=== PATIENT | male | born 1935 | race Caucasian/White ===

== ENCOUNTER → 2018-02-16 10:22 | Outpatient (CLI) | payer MEDICARE, SELFPAY ==
--- NOTE | 2018-02-16 10:30 | XR_ITS ---
XR chest 2V Ordering Physician: Luis Angel Oh MD Patient Age: 82 years: Male HISTORY: ITS.REASON: YEARLY PHYSICAL EXAM TECHNIQUE: PA and lateral chest. Some Coughing.. No chest pain Physical exam COMPARISON :03/27 and 03/15/2016. FINDINGS no lung nodule or lesion evident . 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 Slight coarsening markings toward right infrahilar region and right lung base is overall similar to previous studies. . No significant change Left lung bases clear unremarkable upper lung anand clear. Heart normal size. The lolita and mediastinal structures satisfactory. No pleural effusion. Anterior marginal osteophytes and hyperostosis throughout the T-spine again noted similar to previous studies. No significant Changes T-spine. IMPRESSION: . stable chest nothing definitely acute. Mild chronic changes bilaterally most evident towards right lung base
== END ==
PROVIDERS: PCP Family Medicine; Visit Provider Family Medicine
DX: Z00.00 Encounter for general adult medical examination without abnormal findings (principal)
CPT/HCPCS: 71046; 93005

== ENCOUNTER → 2018-03-15 09:08 | Outpatient (CLI) | payer MEDICARE, SELFPAY ==
[2018-03-15 10:29] LABS: Anion Gap 9.7 mEq/L (5-15); Blood Urea Nitrogen 34 mg/dL (7-18); Calcium 8.9 mg/dL (8.5-10.1); Carbon Dioxide 27 mmol/L (21.0-32.0); Chloride 107 mmol/L (98-107); Creatinine,Serum 1.75 mg/dL (0.70-1.30); Estimated Glomerular Filt Rate 38 ml/min (>60); GFR (African American) 45 ML/MIN (>60); Glucose 150 mg/dL (74-106); Magnesium 1.8 mg/dL (1.4-2.2); Potassium 3.7 mmoL/L (3.5-5.1); Sodium 140 mmol/L (136-145)
== END ==
PROVIDERS: Visit Provider Physician Assistant
DX: I10 Essential (primary) hypertension (principal); R60.0 Localized edema
CPT/HCPCS: 36415; 80048; 83735

== ENCOUNTER → 2019-02-22 14:14 | Outpatient (CLI) | payer MEDICARE, SELFPAY ==
--- NOTE | 2019-02-22 14:18 | XR_ITS ---
XR hip LT 2-3V w/pelvis HISTORY: Left hip pain ORDERING PHYSICIAN: Luis Angel Oh MD PATIENT AGE: 83 years COMPARISON: None FINDINGS: There are mild osteoarthritic changes of the hip. No lytic or blastic change. No fracture or dislocation. There are osteoarthritic changes also noted in the right hip and there is generalized vascular calcification. 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
--- NOTE | 2019-02-22 14:18 | XR_ITS ---
XR chest 2V HISTORY: ITS.REASON: LEFT HIP PAIN,YEARLY CHECK UP ORDERING PHYSICIAN: Luis Angel Oh MD PATIENT AGE: 83 years COMPARISON: 02/16/2018 FINDINGS: Unremarkable cardiovascular structures. There has been interval development of a 10 x 8 x 6.5 cm right upper lobe mass. There is some nodularity along the inferior aspect of this mass. The remaining lungs are clear. There are degenerative changes of the thoracic spine. IMPRESSION: Interval development of 10 cm right upper lobe mass suspicious for neoplasm. Recommend chest CT with contrast for further evaluation
== END ==
PROVIDERS: PCP Family Medicine; Visit Provider Family Medicine
DX: Z00.00 Encounter for general adult medical examination without abnormal findings (principal); M25.552 Pain in left hip
CPT/HCPCS: 71046; 73502; 93005

== ENCOUNTER → 2019-03-08 13:24 | Outpatient (CLI) | payer MEDICARE, SELFPAY ==
--- NOTE | 2019-03-08 13:45 | CT_ITS ---
CT chest wo/w con HISTORY: ITS.REASON: LUNG MASS ORDERING PHYSICIAN: Luis Angel Oh MD PATIENT AGE: 83 years COMPARISON: 08/24/2011. Technique: Axial images obtained. Sagittal, and coronal reformatted images are also generated and reviewed. All CT scans at the facility use one or more dose reduction, viz: automated exposure control, ma/kV adjustment per patient size (including targeted exams where dose is matched to indication, i.e. head), or iterative reconstruction technique. FINDINGS: Airway structures are patent. There is no pleural effusion or pneumothorax. In the left lower lobe and right lower lobe there are several small subcentimeter noncalcified nodules which are stable. Heart size, mediastinal and hilar areas are unremarkable. There are some coronary artery and aortic arch calcified plaques. There are several right-sided rib lesions. The largest involves the anterior lateral right second rib with diameter of 8.0 cm. There is a smaller partially calcified anterior lateral right third rib lesion measuring 3.1 cm and a partially calcified right posterior lateral fourth rib lesion measuring 3.7 cm. There are vertebral body lesions which are small anteriorly at T 12 level although somewhat larger on the right with paraspinal extension at the T9 level and at this level there is also a posterior lesion causing foraminal encroachment on the right at T9-10. There is also a bone lesion involving the left T5 pedicle and facet with extension into the left T5-6 foraminal. There is also possibly a very subtle lytic lesion involving the right pedicle and facet at the approximate C7 cervical level. Visualized upper abdominal areas unremarkable except there is a partially visualized hypodense nonspecific 1.5 cm lesion involving the upper pole of the right kidney. Impression: Multiple bone lesions involving right-sided ribs and thoracic area and perhaps also on the right side in the lower cervical spine at C7 level as discussed above. These are consistent with metastases some of which may be partially calcified which might suggest adenocarcinoma as a primary. The T5 metastatic lesion is also probably extending into the left T5-6 foraminal as well as vertebral canal at T5 level. This is worrisome for cord compression. Numerous small stable punctate noncalcified lung nodules in both lower lobes which are not changed since 2010 suggesting granulomas. Nonspecific incompletely imaged right renal lesion, possible cyst. Suggest MRI thoracic spine with and without contrast to evaluate for possible T5 cord compression and preferably a PET/CT scan for staging. Results to been verbally given to PORSHA Benoit on 03/08/2019 at 4:26 PM.
== END ==
PROVIDERS: PCP Family Medicine; Visit Provider Family Medicine
DX: R91.8 Other nonspecific abnormal finding of lung field (principal)
CPT/HCPCS: 71270; Q9967

== ENCOUNTER → 2019-03-15 10:10 | Outpatient (CLI) | payer MEDICARE, SELFPAY ==
[2019-03-15 13:17] LABS: Basophils # 0.1 K/mm3 (0-0.2); Basophils % 0.8 % (0.1-2.0); Eosinophils # 0.3 K/mm3 (0.0-0.4); Eosinophils % 3.8 % (0.1-12.0); Hematocrit 43.4 % (42.0-52.0); Hemoglobin 13.9 g/dL (14.1-18.0); Lymphocytes # 1.3 K/mm3 (0.7-4.5); Lymphocytes % 19.4 % (10-50); Mean Corpuscular Hemoglobin 30.4 pg (27.0-31.2); Mean Corpuscular Volume 95.2 fl (80-94); Mean Platelet Volume 8.7 fl (7.4-10.4); Monocytes # 0.4 K/mm3 (0.1-1.0); Monocytes % 6.8 % (1.7-9.3); Neutrophils # 4.5 K/mm3 (1.8-7.8); Neutrophils % 69.2 % (37.0-80.0); Platelet Count 283 K/mm3 (142-424); Red Blood Count 4.56 M/mm3 (4.60-6.20); Red Cell Distribution Width 15.1 % (11.5-17.5); White Blood Count 6.5 K/mm3 (4.8-10.8)
[2019-03-15 13:24] LABS: Anion Gap 12.3 mEq/L (5-15); Blood Urea Nitrogen 24 mg/dL (7-18); Calcium 9.7 mg/dL (8.5-10.1); Carbon Dioxide 30 mmol/L (21.0-32.0); Chloride 99 mmol/L (98-107); Creatinine,Serum 1.76 mg/dL (0.70-1.30); Estimated Glomerular Filt Rate 37 ml/min (>60); GFR (African American) 45 ML/MIN (>60); Glucose 95 mg/dL (74-106); Potassium 4.3 mmoL/L (3.5-5.1); Sodium 137 mmol/L (136-145)
[2019-03-20 07:11] LABS: Calcium, Ionized 5.4 mg/dL (4.5-5.6)
== END ==
PROVIDERS: PCP Family Medicine; Visit Provider Hospitalist
DX: N28.9 Disorder of kidney and ureter, unspecified (principal)
CPT/HCPCS: 36415; 80048; 82330; 85025